=== PATIENT | male | born 1950 | race African-American/Black ===

== ENCOUNTER 2022-06-18 14:44 | Emergency (ER) | payer BC ==
[~2022-06-18] VITALS: Ht 185.4 cm; Wt 91.0 kg
[2022-06-18 16:21] VITALS: BP 135/86
== END 2022-06-18 16:21 | disposition home or self-care (01) ==
LOC: ER 14:44
DX: R04.0 Epistaxis (principal); I25.10 Atherosclerotic heart disease of native coronary artery without angina pectoris; Z59.00 Homelessness unspecified
CPT/HCPCS: 99281